=== PATIENT | female | born 1990 | race Caucasian/White ===

== ENCOUNTER 2020-07-27 18:50 | Emergency (ER) | payer BC, SELFPAY | END 2020-07-27 19:42 | disposition home or self-care (01) | LOC: CSHERS 18:50 | DX: H72.91 Unspecified perforation of tympanic membrane, right ear (principal); D64.9 Anemia, unspecified; Z79.899 Other long term (current) drug therapy | CPT/HCPCS: 99282 ==

== ENCOUNTER 2022-07-29 23:31 | Emergency (ER) | payer SELFPAY | END 2022-07-30 00:01 | disposition left against medical advice (07) | LOC: CSHERS 23:31 | DX: Z53.21 Procedure and treatment not carried out due to patient leaving prior to being seen by health care provider (principal) ==